=== PATIENT | male | born 1980 | race Two or more races ===

== ENCOUNTER 2016-09-07 19:41 | Emergency (ER) | payer OTHER ==
--- NOTE | 2016-09-07 20:00 | EDM.PDOC ---
ED HPI Trauma - General Chief Complaint: Lower Extremity Injury/Pain Stated Complaint: PAIN RT ANKLE Time Seen by Provider: 09/07/16 19:55 - History of Present Illness INITIAL COMMENTS - FREE TEXT/NARRATIVE: HISTORY AND PHYSICAL: History of present illness: Patient is a 36-year-old white male presented to 2 right foot/ankle injury that occurred this morning he states he slipped and jammed his foot he denies other trauma or concern Review of systems: As per history of present illness and below otherwise all systems reviewed and negative. Past medical history: As per history of present illness and as reviewed below otherwise noncontributory. Surgical history: As per history of present illness and as reviewed below otherwise noncontributory. Social history: No reported history of drug or alcohol abuse. Family history: As per history of present illness and as reviewed below otherwise noncontributory. Physical exam: HEENT: Atraumatic, normocephalic, pupils reactive, negative for conjunctival pallor or scleral icterus, mucous membranes moist, throat clear, neck supple, nontender, trachea midline. Lungs: Clear to auscultation, breath sounds equal bilaterally, chest nontender. Heart: S1S2, regular, negative for clicks, rubs, or JVD. Abdomen: Soft, nondistended, nontender. Negative for masses or hepatosplenomegaly. Negative for costovertebral tenderness. Pelvis: Stable nontender. Genitourinary: Deferred. Rectal: Deferred. Extremities: Patient has small area of ecchymosis medial aspect inferior malleolar region there is no point tenderness Achilles tendon is intact CMS neurovascular normal Neuro: Awake, alert, oriented. Cranial nerves II through XII unremarkable. Cerebellum unremarkable. Motor and sensory unremarkable throughout. Exam nonfocal. Diagnostics: X-ray right foot/ankle Therapeutics: To be determined Impression: #1 acute right foot/ankle injury Definitive disposition and diagnosis as appropriate pending reevaluation and review of above. Allergies/ADRs: Allergies No Known Allergies Allergy (Verified 09/07/16 19:56) Home Medications: Ambulatory Orders Testosterone Cypionate 09/07/16 Review of Systems - Review of Systems Review Of Systems: ROS reveals no pertinent complaints other than HPI. Trauma Exam - Physical Exam Exam: See Below (See dictation) Course - Vital Signs Last Recorded V/S: Last Vital Signs Temp 36.6 C 09/07/16 19:59 Pulse 72 09/07/16 19:59 Resp 16 09/07/16 19:59 BP 134/82 09/07/16 19:59 Pulse Ox 99 09/07/16 19:59 - Orders/Labs/Meds Orders: Active Orders 24 hr Category Date Time Status Ankle Min 3V Rt [CR] Stat Exams 09/07/16 19:56 Taken Foot 2V Rt [CR] Stat Exams 09/07/16 19:56 Taken Departure - Departure Time of Disposition: 20:17 Disposition: Home, Self-Care 01 Condition: good Clinical Impression: Foot injury, Ankle injury Forms: ED Department Discharge Additional Instructions: The following information is given to patients seen in the emergency department who are being discharged to home. This information is to outline your options for follow-up care. We provide all patients seen in our emergency department with a follow-up referral. The need for follow-up, as well as the timing and circumstances, are variable depending upon the specifics of your emergency department visit. If you don't have a primary care physician on staff, we will provide you with a referral. We always advise you to contact your personal physician following an emergency department visit to inform them of the circumstance of the visit and for follow-up with them and/or the need for any referrals to a consulting specialist. The emergency department will also refer you to a specialist when appropriate. This referral assures that you have the opportunity for followup care with a specialist. All of these measure are taken in an effort to provide you with optimal care, which includes your followup. Under all circumstances we always encourage you to contact your private physician who remains a resource for coordinating your care. When calling for followup care, please make the office aware that this follow-up is from your recent emergency room visit. If for any reason you are refused follow-up, please contact the [facility] emergency department at and asked to speak to the emergency department charge nurse. Jessee wrap as discussed Motrin or Tylenol as directed follow up primary medical doctor one to 2 days return as needed as discussed - My Orders Last 24 Hours: My Active Orders 09/07/16 19:56 Ankle Min 3V Rt [CR] Stat Foot 2V Rt [CR] Stat - Assessment/Plan Last 24 Hours: My Active Orders 09/07/16 19:56 Ankle Min 3V Rt [CR] Stat Foot 2V Rt [CR] Stat
[2016-09-07 20:02] VITALS: BP 134/82
--- NOTE | 2016-09-08 11:25 | CR ---
EXAM DATE: 09/07/16 PATIENT'S AGE: 36 Patient: JORI AMBROCIO Facility: [place], [place] Site . Site : 1980 Study: XRay Extremity Right [id number] ankle-09/07/2016 8:16:42 PM Ordering Physician: Roz Ferreira Final Report: INDICATION: Ankle Pain, Tripped and Fell TECHNIQUE: Ankle radiograph 3 views right COMPARISON: None FINDINGS: Bones: Alignment is normal. No acute fractures or aggressive bone lesions identified. Joint spaces: Unremarkable. No ankle joint effusion is seen. Soft tissues: Unremarkable. No radiopaque foreign bodies are seen. IMPRESSION: 1. No acute osseous injuries are noted. Dictated by: Chip Rod MD @ 09/07/2016 20:19:15 (Electronic Signature) Report Signed by Proxy and Original Signed Document filed in the Medical Record. [facility]ITAL[facility]
--- NOTE | 2016-09-08 11:26 | CR ---
EXAM DATE: 09/07/16 PATIENT'S AGE: 36 Patient: JORI AMBROCIO Facility: [place], [place] Site . Site : 1980 Study: XRay Extremity Right [id number] foot-09/07/2016 8:17:04 PM Ordering Physician: Roz Ferreira Final Report: INDICATION: Foot Pain, Tripped and Fell TECHNIQUE: Foot radiograph 2 views right COMPARISON: None FINDINGS: Bones: Alignment is normal. No acute fractures or aggressive bone lesions identified. A small accessory cuboid bone is noted. A 4 mm sclerotic focus is noted in the 4th middle phalanx, likely a bone island. Joint spaces: Unremarkable. No ankle effusion is seen. Soft tissues: Unremarkable. Kager`s fat pad is normal in appearance. The visualized Achilles` tendon is unremarkable. No radiopaque foreign bodies are seen. IMPRESSION: 1. No acute osseous injuries are noted. Dictated by: Chip Rod MD @ 09/07/2016 20:21:46 (Electronic Signature) Report Signed by Proxy and Original Signed Document filed in the Medical Record. [facility]
== END 2016-09-07 20:25 | disposition home or self-care (01) ==
LOC: MW.ED 19:41
DX: S99.911A Unspecified injury of right ankle, initial encounter (principal); W23.0XXA Caught, crushed, jammed, or pinched between moving objects, initial encounter
CPT/HCPCS: 73610-26-RT; 73610-RT; 73620-26-RT; 73620-RT; 99282; 99283

== ENCOUNTER 2019-09-12 16:37 | Emergency (ER) | payer SELFPAY ==
[2019-09-12 18:28] LABS: BLOOD UREA NITROGEN,BUN 15 mg/dL (7.0-18.0); CARBON DIOXIDE,CO2 23.5 mmol/L (21.0-32.0); CHLORIDE,CL 98 mmol/L (98-107); GLUCOSE RANDOM 104 mg/dL (74-106); POTASSIUM,K 4.3 mmol/L (3.5-5.1); SODIUM,NA 135 mmol/L (136-148)
[2019-09-12] MEDS ORDERED: Ciprofloxacin 500 MG Tab PO ONE (18:42)
--- NOTE | 2019-09-12 19:05 | EDM.PDOC ---
ED HPI GENERAL MEDICAL PROBLEM - General Chief Complaint: Abdominal Pain Stated Complaint: ABDOMINAL PAIN Time Seen by Provider: 09/12/19 17:22 - History of Present Illness INITIAL COMMENTS - FREE TEXT/NARRATIVE: HPI 39-year-old obese male with no known pertinent history presents for evaluation of frequent loose bloody stools since approximately 3 AM is accompanied by diffuse crampy discomfort throughout his abdomen. * Character: bright red blood, no mucus, no pus. * Frequency: ~6 x/day. * Duration: 18 hours * Denies: recent antibiotics, fresh or salt water exposure, recent hospitalization, travel, drinking untreated water, history of c. difficile. * Fever/chills/rigors: denies. * HIV or immunocompromise: denies. * Cough: denies. M/S/F/SocHx notable for: please see HPI; remainder reviewed with patient and in chart. ROS: Negative constitutional, eye, cardiovascular, pulmonary, GI, , MSK, skin , neurologic, psychiatric, endocrine unless noted in the HPI. Exam HR 84, RR 17, BP 152/96, T 35.9C, SaO2 96% on room air. Gen: Pleasant, non-toxic appearing, resting comfortably. HEENT: NC, AT, PEERL, EOMI, neck supple with full range of movement. Resp: Clear to auscultation bilaterally, normal work of breathing, no accessory muscle usage. Card: Regular rate and rhythm with no murmurs, rubs, or gallops, extremities warm and well perfused. GI: Non-tender to palpation throughout all quadrants, no focal tenderness at McBurney's point, negative Israel's sign, non-distended, no rebound or guarding. : No suprapubic tenderness to palpation. MSK: No visible deformities, strength and tone without visually appreciable deficit. Skin: Normal color with no visible lesions. Neuro: alert and oriented 3, no facial asymmetry, vision and hearing WNL. Psych: Mood and affect appropriate. Labs / Imaging (pertinent): WBC 11.06, HB 17.4, ESR 1, sodium 135, potassium 4.3 AC 41, ALT 42, total bilirubin 0.5, BUN 15, creatinine 1.0, CRP <0.20. MDM Previous chart, nursing note, and vitals reviewed. A: 39-year-old obese male with no known pertinent history presents for evaluation of frequent loose bloody stools since approximately 3 AM is accompanied by diffuse crampy discomfort throughout his abdomen. DDx: viral enteritis, viral gastroenteritis, bacterial gastroenteritis, food poisoning, C. Difficile, dehydration, electrolyte abnormalities, septicemia/ bacteremia, DKA, acute appendicitis, inflammatory (Crohns vs ulcerative colitis ). Evaluation: As the patient was bloody diarrhea (pictures provided by patient reviewed) cultures, E. coli 0157:H7 toxin, Shiga toxin, fecal leukocytes, FOBT, O&P, CBC, CMP, procalcitonin, and blood cultures were ordered, however patient did not stool while in the department. As patient is afebrile, has vitals signs and laboratory studies within acceptable limits, has a low-risk history, and a benign abdominal exam he is appropriate for empiric treatment. The patient was prescribed Ciprofloxacin 500 mg BID x 5 days and instructed to follow up with their PCP in 1-2 days to for further evaluation as appropriate. As the patient is non-toxic appearing, is able to take PO well, and remains physiologically well compensated, they are appropriate for outpatient management. Impression: diarrhea. abdomen Pain Score (Numeric/FACES): 6 - Related Data Allergies Allergy/AdvReac Type Severity Reaction Status Date / Time No Known Allergies Allergy Verified 09/12/19 17:15 Home Meds: Home Meds Testosterone Cypionate 200 mg IM ASDIRECTED 09/07/16 [History] Ciprofloxacin HCl [Cipro] 500 mg PO BID #9 tablet 09/12/19 [Rx] Past Medical History Respiratory History: Reports: None Gastrointestinal History: Reports: None Musculoskeletal History: Reports: None - Infectious Disease History Infectious Disease History: Reports: None - Past Surgical History GI Surgical History: Reports: Appendectomy Social & Family History - Family History Family Medical History: Noncontributory - Tobacco Use Smoking Status *Q: Never Smoker Second Hand Smoke Exposure: No - Caffeine Use Caffeine Use: Reports: Soda - Recreational Drug Use Recreational Drug Use: No ED ROS GENERAL - Review of Systems Review Of Systems: See Below ED EXAM, GENERAL - Physical Exam Exam: See Below Course - Vital Signs Last Recorded V/S: Last Vital Signs Temp 35.9 C L 09/12/19 17:12 Pulse 84 09/12/19 17:12 Resp 17 09/12/19 17:12 BP 152/96 H 09/12/19 17:12 Pulse Ox 96 09/12/19 17:12 - Orders/Labs/Meds Orders: Active Orders 24 hr Category Date Time Status CULTURE BLOOD [BC] Stat Lab 09/12/19 17:45 Received CULTURE BLOOD [BC] Stat Lab 09/12/19 17:54 Received FECAL LACTOFERRIN [MREF] Stat Lab 09/12/19 17:27 Ordered OVA & PARASITES BY IMMUNOASSAY [MREF] Stat Lab 09/12/19 17:27 Ordered SHIGA TOXIN 1 & 2 [MREF] Stat Lab 09/12/19 17:27 Ordered STOOL CULTURE/SHIGA TOXIN [MREF] Stat Lab 09/12/19 17:27 Ordered Blood Culture x2 Reflex Set [OM.PC] Stat Oth 09/12/19 17:27 Ordered Labs: Laboratory Tests 09/12/19 09/12/19 09/12/19 Range/Units 17:45 17:45 17:45 WBC 11.06 H (4.0-11.0) K/uL RBC 5.66 (4.50-5.90) M/uL Hgb 17.4 H (13.0-17.0) g/dL Hct 50.3 H (38.0-50.0) % MCV 88.9 (80.0-98.0) fL MCH 30.7 (27.0-32.0) pg MCHC 34.6 (31.0-37.0) g/dL RDW Std Deviation 46.4 (28.0-62.0) fl RDW Coeff of Ray 15 (11.0-15.0) % Plt Count 218 (150-400) K/uL MPV 11.30 (7.40-12.00) fL Neut % (Auto) 69.1 (48.0-80.0) % Lymph % (Auto) 20.1 (16.0-40.0) % Snyder % (Auto) 8.3 (0.0-15.0) % Eos % (Auto) 2.2 (0.0-7.0) % Baso % (Auto) 0.3 (0.0-1.5) % Neut # (Auto) 7.7 H (1.4-5.7) K/uL Lymph # (Auto) 2.2 (0.6-2.4) K/uL Snyder # (Auto) 0.9 H (0.0-0.8) K/uL Eos # (Auto) 0.2 (0.0-0.7) K/uL Baso # (Auto) 0.0 (0.0-0.1) K/uL ESR 1 (0-14) mm/hr Sodium 135 L (136-148) mmol/L Potassium 4.3 (3.5-5.1) mmol/L Chloride 98 (98-107) mmol/L Carbon Dioxide 23.5 (21.0-32.0) mmol/L BUN 15 (7.0-18.0) mg/dL Creatinine 1.0 (0.8-1.3) mg/dL Est Cr Clr Drug Dosing 94.56 mL/min Estimated GFR (MDRD) > 60.0 ml/min Glucose 104 (74-106) mg/dL Calcium 8.8 (8.5-10.1) mg/dL Total Bilirubin 0.5 (0.2-1.0) mg/dL AST 41 H (15-37) IU/L ALT 42 (14-63) IU/L Alkaline Phosphatase 78 (46-116) U/L C-Reactive Protein <0.20 (0.00-0.90) mg/dL Total Protein 8.4 H (6.4-8.2) g/dL Albumin 4.2 (3.4-5.0) g/dL Globulin 4.2 H (2.6-4.0) g/dL Albumin/Globulin Ratio 1.0 (0.9-1.6) Meds: Medications Discontinued Medications Generic Name Dose Route Start Last Admin Trade Name Chuckq PRN Reason Stop Dose Admin Ciprofloxacin 500 mg 09/12/19 18:42 Ciprofloxacin Hcl PO 09/12/19 18:43 NOW ONE Departure - Departure Time of Disposition: 19:04 Disposition: Home, Self-Care 01 Clinical Impression: Diarrhea - Discharge Information Prescriptions: Ciprofloxacin HCl [Cipro] 500 mg PO BID #9 tablet Referrals: PCP,None [Primary Care Provider] - Forms: ED Department Discharge Additional Instructions: You were in seen in the [facility] Emergency Department for evaluation of diarrhea. Please read and follow all of the instructions below. Please follow up with your primary care physician tomorrow for repeat evaluation. Please bring a stool sample to your visit for further studies is appropriate. When calling for follow-up care, please make the office aware that this follow-up is from your recent emergency room visit. If for any reason you are refused follow-up, please contact the [facility] Emergency Department at and asked to speak to the emergency department charge nurse. Your care today was limited to identifying and treating emergent medical problems only. Many people have subtle differences in their test results that require follow up with their outpatient physician(s) to correctly determine if this represents a normal variation or concerning abnormality with respect to your specific health. The care given to you today was limited to identifying and treating emergent medical problems - you need to request a copy of all of your medical records from today's visit and follow up with your outpatient physician(s) to review both today's visit and your overall health. If you have any new symptoms or if you are at all concerned about your health please return immediately to the emergency department. Diarrhea You were evaluated for diarrhea, the cause of your symptoms are presently unclear. Please follow up tomorrow with your primary care physician. You should bring a stool sample to your follow up appointment. You may place a stool sample in Tupperware and keep it refrigerated (like food, it can spoil!). You may request that your primary physician obtain these records or you may obtain them yourself through the medical records office of this [facility]. In the meantime, please stay well-hydrated and take any prescribed medications. * Please drink Pedialyte or other commercially prepared oral rehydation solution. The goal is to replace the fluids and eletrolytes lost through vomiting and diarrhea. Drink enough to produce yellow urine every 4-6 hours. * When your symptoms start improving, begin eating small amounts of bland food. Avoid dairy for 3-4 days following the resolution of your diarrhea as many people are temporarily lacatose intolerant following many diarrheal illnesses. * You have may have been prescribed an antinausea medication (Zofran), anti- cramping medication (Bentyl), and antidiarrheal (loperamide), please use these as directed below. * This virus is spread very easily. Wash your hands carefully for 20 seconds after using the bathroom. Avoid vomiting near others if possible. Flush the toilet with the lid down. Family members should be mindful to wash their hands frequently and to avoid touching their face with the hands if at all possible. Please return to the emergency department if you experience any of the following : * Worsening pain. If your pain does not go away in the next 12-24 hours please return to the emergency department or see your primary care physician promptly. * You cannot keep fluids down or if you are vomiting dark green material, coffe ground like material, or bright bloody material. * If you have bloody bowel movements or bowel movements that are dark and tar like. * If you are unable to pass flatus (gas) or stool for more than 8 hours. * If you have a fever > 100.4F or shaking chills. * If you have yellow skin or eyes or dark brown urine. * If your pain moves to the right lower corner ("quadrant") of your abdomen. * If you are light headed upon standing or passing out. * If you are otherwise concerned about your health. Prescriptions: If you are uninsured or have financial difficulties with filling your prescription(s), you may consider using a free pharmacy discount service such as [employer] (hoohbe) or [employer] ([employer]). These services allow you to search for a medication on your phone (or computer) and obtain a coupon that usually has a significant discount from the list vasquez at a pharmacy. Your physician as well as [facility] does not have a financial relationship with either of these services. You may also wish to speak with your physician to determine if lower cost prescriptions are possible. Obtaining primary care: 1. [facility] provides pediatrics (children), family medicine (children, adults, and some obstetrical care), and internal medicine (adults). Further specialty care is also available. Same day appointments are available. They may be contacted at [phone] and are open Monday through Monday 8 AM to 5 PM. [facility] are located at [facility], [address] [place] [address]. 2. [facility] offers family medicine, internal medicine, womens health, and further specialty care. [facility] may be contacted at [phone]. [facility] is located at [address] [place], [address]. 3. If you have health insurance, please also contact your insurer for a list of accepting providers under your policy, you may contact these providers for further health care. Occupational health: Work related injuries may consider following up with [facility], . Occupational health services are located at [address] [place] [address] and are open Monday through Monday from 7: 30 am to 5:00 pm. Obstetrical and Gynecological Care: [facility], , Monday through Monday 8 AM to 5 PM. [address] [place] [address]. Eyecare: If you have an eye injury you should follow up with your truck shop supervisor or with [facility], at [phone] or [phone] , they are located at [address] [place] [address]. [facility]. [address] [place], [place]. Ph. [phone] Maxwell Luna DDS MS. [address] [facility] [address], [place], [place]. Ph. Armand Blank DDS. [address] [place] [address]. Ph. [phone] Kian Campbell DDS. [address] [facility] [address] [place], [place]. Ph. [phone] Ra[facility]l Rodriguez [facility] PC. [address] [facility] [address] [place], [place]. Ph. [phone] Paras Martinez DDS. [address] [facility]. Ph. [phone] [facility]. [address] [place], [place]. Ph. [phone] [facility]. [address] [place] [address], [place], [place]. Ph. [phone] [facility] [address] [place] [address]. Ph. Servando Gibbs. [address] [place] [address] 1. [place], [place]. Ph. [phone] [facility]. [address] [place] [address], [place]. Ph. Ciprofloxacin (Brand Name: Cipro) This medication is used to treat a variety of bacterial infections. Ciprofloxacin belongs to a class of drugs called quinolone antibiotics. It works by stopping the growth of bacteria. This antibiotic treats only bacterial infections. It will not work for virus infections (such as common cold, flu). Ciprofloxacin - How To Use: * This medication may be taken with or without food as directed by your doctor, usually twice a day in the morning and evening. * If you are using a liquid form of this drug, shake the container well for 15 seconds before pouring each dose. Carefully measure the dose using a special measuring device/spoon. Do not use a household spoon because you may not get the correct dose. Do not chew the contents of the suspension. * Take this medication at least 2 hours before or 6 hours after taking other products that may bind to it, decreasing its effectiveness. Ask your pharmacist about the other products you take. Some examples include: quinapril, sevelamer, sucralfate, vitamins/minerals (including iron and zinc supplements), and products containing magnesium, aluminum, or calcium (such as antacids, didanosine solution, calcium supplements). * Calcium-rich foods, including dairy products (such as milk, yogurt) or calcium -enriched juice, can also decrease the effect of this medication. Take this medication at least 2 hours before or 6 hours after eating calcium-rich foods, unless you are eating these foods as part of a larger meal that contains other ( [id number]) foods. These other foods decrease the calcium binding effect. * Ask your doctor or pharmacist about safely using nutritional supplements/ replacements with this medication. * Antibiotics work best when the amount of medicine in your body is kept at a constant level. Therefore, take this drug at evenly spaced intervals. * Continue to take this medication until the full prescribed amount is finished , even if symptoms disappear after a few days. Stopping the medication too early may result in a return of the infection. * Please read all the package instructions with this medication. Ciprofloxacin - Side Effects: * Nausea, diarrhea, dizziness, lightheadedness, headache, or trouble sleeping may occur. If any of these effects persist or worsen, tell your doctor or pharmacist promptly. * Tell your doctor right away if you have any serious side effects, including: skin that sunburns more easily (sun sensitivity), unusual bruising/bleeding, signs of a new infection (such as new/persistent fever, persistent sore throat) , unusual change in the amount of urine, change in color of urine (red/pink color), signs of liver problems (such as unusual tiredness, stomach/abdominal pain, persistent nausea/vomiting, yellowing eyes/skin, dark urine). * Get medical help right away if you have any very serious side effects, including: severe/persistent headache, vision changes, shaking (tremors), seizures, severe dizziness, fainting, fast/irregular heartbeat, mental/mood changes (such as anxiety, confusion, hallucinations, depression, rare thoughts of suicide). * Rarely, this medication may cause serious, possibly permanent, nerve problems (peripheral neuropathy). Stop taking ciprofloxacin and tell your doctor right away if you have any of the following symptoms: pain/numbness/burning/tingling/ weakness in your arms, hands, legs, or feet, changes in how you sense touch/pain /temperature/vibration/body position. * This medication may rarely cause a severe intestinal condition (Clostridium difficile-associated diarrhea) due to a type of resistant bacteria. This condition may occur during treatment or weeks to months after treatment has stopped. Tell your doctor right away if you develop: persistent diarrhea, abdominal or stomach pain/cramping, blood/mucus in your stool. * Do not use anti-diarrhea products or narcotic pain medications if you have any of these symptoms because these products may make them worse. * Use of this medication for prolonged or repeated periods may result in oral thrush or a new yeast infection. Contact your doctor if you notice white patches in your mouth, a change in vaginal discharge, or other new symptoms. * A very serious allergic reaction to this drug is rare. However, get medical help right away if you notice any of the following symptoms of a serious allergic reaction: rash, itching/swelling (especially of the face/tongue/throat) , severe dizziness, trouble breathing. * This is not a complete list of possible side effects. If you notice other effects not listed above, contact your doctor or pharmacist. Ciprofloxacin - Precautions: * This medication is associated with an increased risk of tendon rupture. Tendons are the areas that connect your muscles to your joints, an example would be the Achilles tendon at the back of your ankle. You will have increased risk of tendon rupture if you are older than 60 years, take steroids ( corticosteroids) or are kidney, heart, or lung transplant recipient. While there is a risk of tendon rupture, the overall risk versus benefits of this medication were considered at the time of this drug being prescribed. Call your healthcare provider right away at the first signs or symptoms of pain, swelling or inflammation in a tendon area. These could be symptoms of tendinitis or tendon rupture. Stop taking your ciprofloxacin until a healthcare provider has determined that you do not have tendinitis or a tendon rupture. Signs or symptoms of tendon rupture include: a snap or pop in a tendon area, bruising right after an injury in a tendon area, inability to move the affected area or bear weight. * Before taking ciprofloxacin, tell your doctor or pharmacist if you are allergic to it; or to other quinolone antibiotics such as norfloxacin, gemifloxacin, levofloxacin, moxifloxacin, or ofloxacin; or if you have any other allergies. This product may contain inactive ingredients, which can cause allergic reactions or other problems. Talk to your pharmacist for more details. * This medication may rarely cause tendon damage (such as tendonitis, tendon rupture) during or after treatment. Your risk for tendon problems is greater if you are over 60 years of age, if you are taking corticosteroids (such as prednisone), or if you have a kidney, heart, or lung transplant. Stop exercising , rest, and get medical help right away if you develop joint/muscle/tendon pain or swelling. * Ciprofloxacin should not be used by patients with myasthenia gravis. It may cause the condition to become worse. Get medical help right away if you develop muscle weakness or trouble breathing. * Before using this medication, tell your doctor or pharmacist your medical history, especially of: diabetes, heart problems (such as recent heart attack), joint/tendon problems (such as tendonitis, bursitis), kidney disease, liver disease, myasthenia gravis, nerve problems (such as peripheral neuropathy), seizures, conditions that increase your risk of seizures (such as brain/head injury, brain tumors, cerebral atherosclerosis). * Ciprofloxacin may cause a condition that affects the heart rhythm (QT prolongation). QT prolongation can rarely cause serious (rarely fatal) fast/ irregular heartbeat and other symptoms (such as severe dizziness, fainting) that need medical attention right away. * The risk of QT prolongation may be increased if you have certain medical conditions or are taking other drugs that may cause QT prolongation. Before using ciprofloxacin, tell your doctor or pharmacist of all the drugs you take and if you have any of the following conditions: certain heart problems (heart failure, slow heartbeat, QT prolongation in the EKG), family history of certain heart problems (QT prolongation in the EKG, sudden cardiac ). * Low levels of potassium or magnesium in the blood may also increase your risk of QT prolongation. This risk may increase if you use certain drugs (such as diuretics/"water pills") or if you have conditions such as severe sweating, diarrhea, or vomiting. Talk to your doctor about using ciprofloxacin safely. * This medication may rarely cause serious changes in blood sugar levels, especially if you have diabetes. Watch for symptoms of high blood sugar including increased thirst and urination. Ciprofloxacin may increase the blood sugar-lowering effects of the medication glyburide. Also watch for symptoms of low blood sugar such as sudden sweating, shaking, fast heartbeat, hunger, blurred vision, dizziness, or tingling hands/feet. Check your blood sugar regularly as directed by your doctor and report any changes. If you experience symptoms of low blood sugar, you may raise your blood sugar by using glucose tablets/gel or eating a quick source of sugar such as table sugar, honey, or candy, or drinking fruit juice or non-diet soda. Tell your doctor right away about the reaction and the use of this product. To help prevent low blood sugar , eat meals on a regular schedule, and do not skip meals. Your doctor may need to switch you to another antibiotic or adjust your diabetes medications if any reaction occurs. * This drug may make you dizzy. Do not drive, use machinery, or do any activity that requires alertness until you are sure you can perform such activities safely. Limit alcoholic beverages. * This medication may make you more sensitive to the sun. Avoid prolonged sun exposure, tanning booths, and sunlamps. Use a sunscreen and wear protective clothing when outdoors. Other medications (such as tretinoin-mequinol) may increase your sun sensitivity. Ask your doctor or pharmacist for more details. * Ciprofloxacin may cause live bacterial vaccines (such as typhoid vaccine) not to work as well. Therefore, do not have any immunizations/vaccinations while using this medication without the consent of your doctor. * Before having surgery, tell your doctor or dentist about all the products you use (including prescription drugs, nonprescription drugs, and herbal products). * This medication contains sucrose and is therefore not recommended if you have a rare hereditary metabolic condition (such as fructose intolerance, sucrase- isomaltase deficiency, glucose-galactose malabsorption). * Children may be more sensitive to the side effects of this drug, especially joint/tendon problems. * Older adults may be more sensitive to the side effects of this drug, especially tendon problems (especially if they are also taking corticosteroids such as prednisone or hydrocortisone) and QT prolongation (see above). * During , this medication should be used only when clearly needed. Discuss the risks and benefits with your doctor. * This medication passes into breast milk. Consult your doctor before breast- feeding. Ciprofloxacin - Drug Interactions: * Drug interactions may change how your medications work or increase your risk for serious side effects. This document does not contain all possible drug interactions. Keep a list of all the products you use (including prescription/ nonprescription drugs and herbal products) and share it with your doctor and pharmacist. Do not start, stop, or change the dosage of any medicines without your doctor's approval. * Some products that may interact with this drug include: "blood thinners" ( such as acenocoumarol, warfarin), strontium. * Many drugs besides ciprofloxacin may affect the heart rhythm (QT prolongation) , including amiodarone, dofetilide, quinidine, procainamide, sotalol, among others. * This medication can slow down the removal of other medications from your body , which may affect how they work. Examples of affected drugs include duloxetine , pirfenidone, tasimelteon, tizanidine, among others. * Avoid drinking large amounts of beverages containing caffeine (coffee, tea, jerica), eating large amounts of chocolate, or taking chff-can-fquelwz products that contain caffeine. This drug may increase and/or prolong the effects of caffeine. Although most antibiotics are unlikely to affect hormonal control such as pills, patch, or ring, a few antibiotics (such as rifampin, rifabutin) can decrease their effectiveness. This could result in . If you use hormonal control, ask your doctor or pharmacist for more details. Sepsis Event Note - Evaluation Sepsis Screening Result: No Definite Risk - Focused Exam Vital Signs: Vital Signs Temp Pulse Resp BP Pulse Ox 09/12/19 17:12 35.9 C L 84 17 152/96 H 96 Date Exam was Performed: 09/12/19 Time Exam was Performed: 19:04 - My Orders Last 24 Hours: My Active Orders 09/12/19 17:27 FECAL LACTOFERRIN [MREF] Stat OVA & PARASITES BY IMMUNOASSAY [MREF] Stat SHIGA TOXIN 1 & 2 [MREF] Stat STOOL CULTURE/SHIGA TOXIN [MREF] Stat Blood Culture x2 Reflex Set [OM.PC] Stat 09/12/19 17:45 CULTURE BLOOD [BC] Stat 09/12/19 17:54 CULTURE BLOOD [BC] Stat - Assessment/Plan Last 24 Hours: My Active Orders 09/12/19 17:27 FECAL LACTOFERRIN [MREF] Stat OVA & PARASITES BY IMMUNOASSAY [MREF] Stat SHIGA TOXIN 1 & 2 [MREF] Stat STOOL CULTURE/SHIGA TOXIN [MREF] Stat Blood Culture x2 Reflex Set [OM.PC] Stat 09/12/19 17:45 CULTURE BLOOD [BC] Stat 09/12/19 17:54 CULTURE BLOOD [BC] Stat
[2019-09-12 19:08] VITALS: BP 133/75; PULSE 81
== END 2019-09-12 19:10 | disposition home or self-care (01) ==
LOC: MW.ED 16:37
DX: R19.7 Diarrhea, unspecified (principal)
CPT/HCPCS: 36415; 80053; 85025; 85652; 86140; 87040; 99284; A9270

== ENCOUNTER 2019-09-13 19:23 | Emergency (ER) | payer OTHER ==
[2019-09-13] MEDS ORDERED: Ciprofloxacin 500 MG Tab PO ONE (19:51)
--- NOTE | 2019-09-13 19:57 | EDM.PDOC ---
ED HPI GENERAL MEDICAL PROBLEM - General Chief Complaint: Abdominal Pain Stated Complaint: REVISIT Time Seen by Provider: 09/13/19 19:52 Source of Information: Reports: Patient, Provider - History of Present Illness INITIAL COMMENTS - FREE TEXT/NARRATIVE: The patient is a 39-year-old male who was seen here yesterday for abdominal pain and bloody diarrhea and had a work-up performed and was discharged with a prescription for Cipro. The patient took his prescription for the pharmacy but he had not picked it up yet because he had to work. He is still having the lower abdominal cramping and tenderness a little worse on the left side, no fevers but some occasional body aches and still occasional bloody diarrhea but no incontinence. He is not lightheaded, no syncope or near syncope, no shortness of breath, and he does not feel any worse today than he did yesterday. The day physician who had seen the patient received a phone call from lab that the patient had a positive blood culture so the patient was called back in to be reevaluated. Abdomen Pain Score (Numeric/FACES): 6 - Related Data Allergies Allergy/AdvReac Type Severity Reaction Status Date / Time No Known Allergies Allergy Verified 09/13/19 19:50 Home Meds: Home Meds Testosterone Cypionate 200 mg IM ASDIRECTED 09/07/16 [History] Ciprofloxacin HCl [Cipro] 500 mg PO BID #9 tablet 09/12/19 [Rx] Past Medical History Respiratory History: Reports: None Gastrointestinal History: Reports: None Musculoskeletal History: Reports: None - Infectious Disease History Infectious Disease History: Reports: None - Past Surgical History GI Surgical History: Reports: Appendectomy Social & Family History - Family History Family Medical History: Noncontributory - Caffeine Use Caffeine Use: Reports: Soda ED ROS GENERAL - Review of Systems Review Of Systems: See Below (Positive for bloody diarrhea, negative for fevers , positive for body aches, negative shortness of breath, negative for syncope, negative for near syncope, all other Positives and pertinent negatives as per HPI. All other pertinent systems were reviewed and are negative) ED EXAM, GI/ABD - Physical Exam Exam: See Below Text/Narrative:: Constitutional: No acute distress, Non-toxic appearance HEENT.: Normocephalic, Atraumatic, PERRL, EOMI, External ears are atraumatic, nares are patent without epistaxis Neck: Normal range of motion, Trachea Midline, No stridor Respiratory.: No respiratory distress, No tachypnea, Lungs Clear to Auscultation bilaterally without wheezes, rales, or rhonchi Cardiovascular.: Regular rate and Rhythm without murmurs, rubs, or gallops, good peripheral perfusion GI: Mild obesity, abdomen is soft and not distended, there is some very mild subjective left lower quadrant abdominal tenderness but definitely no rebound, no rigidity, no guarding Genital Urinary: Deferred Musculoskeletal: Good range of motion. All 4 extremities present and atraumatic , no edema Back: Full Range of Motion Skin: Warm, Dry, Color is ethnicity appropriate, No acute rash. Lymphatic: No lymphadenopathy noted Neurological: Alert, Awake and oriented x 3, No focal deficits noted appreciate , GCS 15 Psych: Affect, Judgement, mood normal Course - Vital Signs Text/Narrative:: The patient is minimally tachycardic with a heart rate of 102 bpm, but his blood pressure is stable, he is not orthostatic, he has excellent skin perfusion , he is afebrile, and clinically looks well without any signs of sepsis. The patient is not decompensating, and he definitely does not have any peritonitis on exam. Furthermore, looking at the records 1 of 2 cultures was positive for gram-positive cocci in clusters which is most likely a skin contaminant. Thus, given the entire clinical scenario I do not think that the patient needs other work-up in the ER. I believe that the Cipro was the appropriate medication and the patient will be given a dose of Cipro 500 mg orally here in the ER to cover him overnight and he was encouraged to make sure that he picks up his prescription in the morning and take it as prescribed. He was informed that antibiotics take a good 24 to 48 hours before they really start taking full effect so he should not expect to be immediately better and as long as he is not decompensating he can follow-up with his primary care physician. Last Recorded V/S: Last Vital Signs Temp 36.9 C 09/13/19 19:40 Pulse 102 H 09/13/19 19:40 Resp 18 09/13/19 19:40 BP 138/89 09/13/19 19:40 Pulse Ox 95 09/13/19 19:40 - Orders/Labs/Meds Meds: Medications Discontinued Medications Generic Name Dose Route Start Last Admin Trade Name Freq PRN Reason Stop Dose Admin Ciprofloxacin 500 mg 09/13/19 19:51 Ciprofloxacin Hcl PO 09/13/19 19:52 ONETIME ONE Departure - Departure Time of Disposition: 19:59 Disposition: Home, Self-Care 01 Condition: Good Clinical Impression: Diarrhea - Discharge Information *PRESCRIPTION DRUG MONITORING PROGRAM REVIEWED*: Not Applicable *COPY OF PRESCRIPTION DRUG MONITORING REPORT IN PATIENT NORAH: Not Applicable Referrals: PCP,None [Primary Care Provider] - Forms: ED Department Discharge Additional Instructions: Continue your previous instructions and make sure that you picker tender your Cipro prescription in the morning. Return for any concerns. Sepsis Event Note - Focused Exam Vital Signs: Vital Signs Temp Pulse Resp BP Pulse Ox 09/13/19 19:40 36.9 C 102 H 18 138/89 95 Date Exam was Performed: 09/13/19 Time Exam was Performed: 19:58
[2019-09-13 20:25] VITALS: BP 136/85; PULSE 98
== END 2019-09-13 20:10 | disposition home or self-care (01) ==
LOC: MW.ED 19:23
DX: R19.7 Diarrhea, unspecified (principal)
CPT/HCPCS: 99283; A9270